=== PATIENT | male | born 2005 | race Two or more races ===

== ENCOUNTER 2025-04-23 02:28 | Emergency (ER) | payer MEDICAID, OTHER ==
[~2025-04-23] VITALS: Ht 177.8 cm; Wt 118.2 kg
--- NOTE | 2025-04-23 04:47 | ED.PDOC ---
History of Present Illness HPI Comments 20-year-old male is brought in by ambulance for chief complaint of suicide ideations. Learning patient reports having at suicide ideation for the past 2 years. Tonight, patient reports on walking to his nearest fire station after drinking alcohol, endorsing thoughts wanting to end his life. Associated aud itory hallucinations (hears voices). Denial of any homicidal ideations, visual hallucinations, or further acute symptoms. REVIEW OF SYSTEMS: General: No fever, no chills, HEENT: No neck pain, no blurred vision Cardiac: No chest pain. No palpitations. Lungs: No shortness of breath, GI: No abdominal pain, no vomiting Musculoskeletal: No joint pain , no back pain Skin: No rash, no wound Neuro: No headache, no dizziness, no syncope Psychiatric: Suicide ideations. Auditory hallucinations. PHYSICAL EXAM: General: Awake, alert and oriented. No acute distress. Skin: Skin in warm, dry and intact without rashes or lesions. HEENT: The head is normocephalic and atraumatic. Conjunctivae are clear without exudates or hemorrhage. Sclera is non-icteric. Neck: Normal range of motion. No JVD. Cardiac: Regular rate Respiratory: No signs of respiratory distress. No Stridor. Extremities: Mild swelling to left hand. Otherwise, remaining upper and lower extremities are atraumatic in appearance without deformity. Neurological: The patient is awake, alert and oriented to person, place, and time with normal speech. Speech is clear. There is no facial asymmetry. Psychiatric: Appropriate mood and affect. Good judgement and insight. Chief Complaint: Suicidal Time Seen by MD: 04:40 Reviewed Notes: Nurses Notes, Banking Consultant Notes, Medications, Allergies Allergies: Coded Allergies: NO KNOWN ALLERGIES (Unverified , 04/23/25) Information Source: Patient, Emergency Med Personnel Mode of Arrival: EMS Severity: Moderate Timing: Hours Duration: Since onset Prehospital treatment: 12 Lead EKG, Medical Supply Technician Past Medical History PAST MEDICAL HISTORY: Denies Surgical History: Denies all surgeries Social History Smoker: Non-Smoker Alcohol: Heavy Drugs: Denies Drug Use Lives In: Home Was a procedure done? Was a procedure done?: No Differential Dx Considerations may include: Differentials include but not limited to suicide ideations, depression, hopelessness, substance abuse, substance dependency, alcohol intoxication, among others X-Ray, Labs, Meds, VS Vital Signs Date Time Temp Pulse Resp B/P (MAP) Pulse Ox O2 Delivery O2 Flow Rate FiO2 04/23/25 10:30 94 18 96 Room Air* 0 21 04/23/25 10:30 97.9 94 18 132/76 (94) 96 97.9 04/23/25 05:41 98.4 93 18 111/58 (75) 97 98.4 04/23/25 02:35 98.8 110 20 166/94 96 98.8 Lab Test 04/23/25 05:00 Range/Units White Blood Count 6.7 4.4-10.8 10^3/uL Red Blood Count 5.36 4.5-5.90 10^6/uL Hemoglobin 17.0 13.5-17.5 g/dL Hematocrit 49.4 41.0-53.0 % Mean Corpuscular Volume 92.1 80.0-100.0 fL Mean Corpuscular Hemoglobin 31.8 28.0-32.0 pg Mean Corpuscular Hemoglobin Concent 34.5 32.0-36.0 g/dL Red Cell Distribution Width 13.5 11.8-14.3 % Platelet Count 317 140-450 10^3/uL Mean Platelet Volume 8.4 6.9-10.8 fL Neutrophils (%) (Auto) 62.9 37.0-80.0 % Lymphocytes (%) (Auto) 29.0 10.0-50.0 % Monocytes (%) (Auto) 6.0 0.0-12.0 % Eosinophils (%) (Auto) 1.5 0.0-7.0 % Basophils (%) (Auto) 0.6 0.0-2.0 % Neutrophils # (Auto) 4.2 1.6-8.6 10 ^3/uL Lymphocytes # (Auto) 1.9 0.4-5.4 10 ^3/uL Monocytes # (Auto) 0.4 0-1.3 10 ^3/uL Eosinophils # (Auto) 0.1 0-0.8 10 ^3/uL Basophils # (Auto) 0 0-0.2 10 ^3/uL Nucleated Red Blood Cells 0.4 % Sodium Level 142 136-145 mmol/L Potassium Level 3.9 3.5-5.1 mmol/L Chloride Level 108 H 98-107 mmol/L Carbon Dioxide Level 23 20-31 mmol/L Anion Gap 11 5-15 Blood Urea Nitrogen < 5 L 9-23 mg/dL Creatinine 0.97 0.700-1.30 mg/dL Glomerular Filtration Rate Calc 115 >90 mL/min BUN/Creatinine Ratio 5.2 L 10.0-20.0 Serum Glucose 110 H 74-106 mg/dL Calcium Level 9.8 8.7-10.4 mg/dL Plasma/Serum Blood Alcohol 200.8 H <10 mg/dL Blood alcohol level elevated Vitals stable. No sign of distress. Ambulating. Medically cleared. Psychiatric evaluation. Time of 1ST Reevaluation: 04:46 Reevaluation 1ST: Unchanged Patient Education/Counseling: Other (ED observation) Family Education/Counseling: No Family Present SEPSIS Sepsis Screen Date sepsis recognized/suspect: Apr 23, 2025 Time Sepsis recognized/suspect: 234 Recent Procedure: No On Antibiotic Therapy: No Respiratory Rate >20: No Heart Rate >90: Yes Temp<36 C (96.8 F) or >38.3 C: No SBP <90 or MAP <65 mmHG: No New Acute Mental Status Change: No Is the patient on CPAP, BIPAP,: No Physician Orders * Psychiatric Consult (04/23/25 02:21) Sitter At Bedside (04/23/25 04:48) Urinalysis (04/23/25 04:48) Drug Screen (04/23/25 04:48) Soc Telemed Psych Consult (04/23/25 04:48) Regular Diet (04/23/25 Dinner) * Manufacturers Agent Consult (04/23/25 ) Vital Signs Date Time Temp Pulse Resp B/P (MAP) Pulse Ox O2 Delivery O2 Flow Rate FiO2 04/23/25 10:30 94 18 96 Room Air* 0 21 04/23/25 10:30 97.9 94 18 132/76 (94) 96 97.9 04/23/25 05:41 98.4 93 18 111/58 (75) 97 98.4 04/23/25 02:35 98.8 110 20 166/94 96 98.8 Laboratory Tests Test 04/23/25 05:00 White Blood Count 6.7 10^3/uL (4.4-10.8) Departure 1 Departure Time of Disposition: 09:21 Impression: Primary Impression: Suicidal ideation Disposition: 02 SHORT TERM HOSPITAL Condition: Stable Additional Instructions: ED DISCHARGE INSTRUCTIONS Instructions: Please read all instructions provided in this packet carefully. Although you have been discharged from the Emergency Department, this does not mean that you have a "clean bill of health". No definitive diagnosis for your symptoms has been made today. It is possible that you are in the process of developing a serious illness. This is why you must return to the ED without fail if any new or worsening symptoms (especially if your symptoms include thoughts of wanting to hurt yourself or her others, chest pain, trouble breathing, abdominal pain, fever, headache, confusion, trouble seeing, or trouble walking) It is also very important that you see a primary care provider (PCP) within the next 3-5 days to follow up. If you are unable to get an appointment, return to the ED for re-evaluation. Where to get help 24 hours a day, 7 days a week Call the Suicide and Crisis Lifeline at 934. Call 1-976-817-VSQJ ( ). Text HOME to 276438 to access the Crisis Text Line. Consider saving these numbers in your phone. Go to [employer] for more information or to chat online. Comments MDM: Psychiatry evaluated patient and felt he is stable for discharge home. Extensive evaluation was performed in attempt to identify or rule out: (See differential diagnosis section) The following tests were ordered, and results were reviewed by me and discussed with patient: (See diagnostic results section) The following test were independently interpreted by me: BMP, CBC, blood alcohol, drug screen, UA Critical Care Note Critical Care Time?: No Stability Stability form required: No Heart Score Heart Score: Heart Score Response (Comments) Value History N/A 0 EKG N/A 0 Age N/A 0 Risk Factors N/A 0 Troponin N/A 0 Total 0 I personally scribed for EARL SANDRA MD ([email or web address]) on 04/23/25 at 04:47. Electronically submitted by Jose Okeefe ([email or web address]). I personally scribed for EARL SANDRA MD ([email or web address]) on 04/23/25 at 06:44. Electronically submitted by Jose Okeefe ([email or web address]). EARL SANDRA MD Apr 23, 2025 04:47 MARCO ANTONIO BAILEY MD Apr 23, 2025 09:21
[2025-04-23 05:08] LABS: Hematocrit 49.4 % (41.0-53.0); Hemoglobin 17.0 g/dL (13.5-17.5); Mean Corpuscular Hemoglobin 31.8 pg (28.0-32.0); Mean Corpuscular Volume 92.1 fL (80.0-100.0); Nucleated Red Blood Cells % 0.4 %
[2025-04-23 05:15] LABS: Potassium 3.9 mmol/L (3.5-5.1); Sodium 142 mmol/L (136-145)
[2025-04-23 05:16] LABS: Anion Gap 11 (5-15); Calcium 9.8 mg/dL (8.7-10.4); Carbon Dioxide 23 mmol/L (20-31)
[2025-04-23 05:18] LABS: Chloride 108 mmol/L (98-107)
[2025-04-23 05:22] LABS: BUN/Creatinine Ratio 5.2 (10.0-20.0); Blood Urea Nitrogen < 5 mg/dL (9-23); Glucose 110 mg/dL (74-106)
[2025-04-23 10:30] VITALS: BP 132/76; PULSE 94; RESP 18; TEMP 97.9; O2SAT 96
--- NOTE | 2025-04-23 17:59 | DVHINCON2 ---
Date of Service if different f: Apr 23, 2025 Consultation ([facility]) Labs Laboratory Tests Test 04/23/25 05:00 White Blood Count 6.7 10^3/uL (4.4-10.8) Red Blood Count 5.36 10^6/uL (4.5-5.90) Hemoglobin 17.0 g/dL (13.5-17.5) Hematocrit 49.4 % (41.0-53.0) Mean Corpuscular Volume 92.1 fL (80.0-100.0) Mean Corpuscular Hemoglobin 31.8 pg (28.0-32.0) Mean Corpuscular Hemoglobin Concent 34.5 g/dL (32.0-36.0) Red Cell Distribution Width 13.5 % (11.8-14.3) Platelet Count 317 10^3/uL (140-450) Mean Platelet Volume 8.4 fL (6.9-10.8) Neutrophils (%) (Auto) 62.9 % (37.0-80.0) Lymphocytes (%) (Auto) 29.0 % (10.0-50.0) Monocytes (%) (Auto) 6.0 % (0.0-12.0) Eosinophils (%) (Auto) 1.5 % (0.0-7.0) Basophils (%) (Auto) 0.6 % (0.0-2.0) Neutrophils # (Auto) 4.2 10 ^3/uL (1.6-8.6) Lymphocytes # (Auto) 1.9 10 ^3/uL (0.4-5.4) Monocytes # (Auto) 0.4 10 ^3/uL (0-1.3) Eosinophils # (Auto) 0.1 10 ^3/uL (0-0.8) Basophils # (Auto) 0 10 ^3/uL (0-0.2) Nucleated Red Blood Cells 0.4 % Sodium Level 142 mmol/L (136-145) Potassium Level 3.9 mmol/L (3.5-5.1) Chloride Level 108 mmol/L (98-107) Carbon Dioxide Level 23 mmol/L (20-31) Anion Gap 11 (5-15) Blood Urea Nitrogen < 5 mg/dL (9-23) Creatinine 0.97 mg/dL (0.700-1.30) Glomerular Filtration Rate Calc 115 mL/min (>90) BUN/Creatinine Ratio 5.2 (10.0-20.0) Serum Glucose 110 mg/dL (74-106) Calcium Level 9.8 mg/dL (8.7-10.4) Plasma/Serum Blood Alcohol 200.8 mg/dL (<10) Appetite: Good Appearance: Stated age, Groomed, Clean Psychomotor activity: WNL Behavioral: Cooperative Eye contact: Appropriate Speech: WNL Affect: Guarded Mood: Depressed Thought processes: Linear/Goal-directed Thought content: WNL Suicidal ideations: Absent Homicidal ideations: Absent Orientation: Person, Place, Time, Situation Memory intact: Recent Intellect: Average Abstractability: WNL Concentration: Adequate Attention: Adequate Judgement: WNL Insight: Fair Vitals Vital Signs Date Time Temp Pulse Resp B/P (MAP) Pulse Ox O2 Delivery O2 Flow Rate FiO2 04/23/25 10:30 94 18 96 Room Air* 0 21 04/23/25 10:30 97.9 132/76 (94) 97.9 Medication adjusted: No History of Present Illness Reason for Consult : patient expressed suicidal ideation after alcohol intoxication HPI : This is a 20-year-old male with no past psychiatric diagnosis, he presented here after going to fire station to report suicidal ideation. patient is evaluated via telepsychiatry. On exam, patient reports sometimes feeling down and believes he uses alcohol as a way to cope. He reports history of childhood trauma regarding parents but guarded, not willing to elaborate. He denies any nightmares or flashbacks. He reports after drinking tequila and twisted teas, he was intoxicated and walked over to fire station near his house to report suicidal ideation. He presently denies suicidal/homicidal ideation. he denies reporting auditory hallucination. He denies any history of psychotic symptoms. He reports sleep and appetite are intact. He denies auditory/visual hallucinations or paranoid thoughts. He does not wish for admission to psychiatric facilities or use of psychotropic medications at this time. He does agree to referrals for outpatient services for therapist. Past Psychiatric History : he denies past psych admissions or holds. He denies prior suicide attempts. he denies past use of psychotropic medications or current outpatient mental connection Past Medical History : he denies Social History : He reports living with paternal uncles for last few month, unclear about housing prior to this. He reports support with at bedside. He denies any known family history. He reports substance use as alcohol only, drinks every other weekend. Denies other substances. Diagnosis: unspecified mood disorder Plan : Patient presently denies Si/Hi and intoxicated when he previously reported this. Patient may discharge home with outpatient referrals. Encouraged to avoid substances and seek outpatient services. Discussed to call 911 or return to ED if future suicidal/homicidal thoughts arise. MICK ALY DNP Apr 23, 2025 17:59
== END 2025-04-23 19:10 | disposition home or self-care (01) ==
LOC: EDBD 02:28 → ER 02:28
DX: R45.851 Suicidal ideations (principal); F10.129 Alcohol abuse with intoxication, unspecified; Z79.899 Other long term (current) drug therapy; Y90.9 Presence of alcohol in blood, level not specified
CPT/HCPCS: 36415; 80048; 80320; 85025